=== PATIENT | female | born 1990 | race Caucasian/White ===

== ENCOUNTER 2022-01-22 18:01 | Emergency (ER) | payer MEDICAID, SELFPAY ==
[2022-01-22 18:04] VITALS: BP 160/85; PULSE 71; RESP 16; TEMP 36.5; O2SAT 100; BMI 37.8
--- NOTE | 2022-01-22 18:41 | CT_ITS ---
STUDY: CT BRAIN WITH AND WITHOUT CONTRAST REASON FOR EXAM: Female, 31 years old. headache, left sided weakness RADIATION DOSAGE (If Supplied By Facility): CTDIvol = ( 44.99 ) mGy, DLP = ( 1513.48 ) mGycm TECHNIQUE: Transaxial CT imaging of the brain was performed pre and post contrast administration. The examination was performed with intravenous administration of IV 50mL Isovue-370. Individualized dose optimization techniques were used for this CT. COMPARISON: None. FINDINGS: Normal soft tissue structures. Normal calvarium. Normal size ventricles and extra-axial spaces for the patient''s age. Normal white matter tracts of the cerebral hemispheres. Normal basal ganglia and thalami. Normal brainstem. Normal cerebellum. No evidence of abnormal contrast enhancement. There is no intracranial hemorrhage. There are no findings of an acute ischemic infarction. Moderate opacification of right mastoid air cells. Left mastoid air cells and paranasal sinuses clear. CT/Brain/Head W/WO Contrast IMPRESSION: Brain normal pre and postcontrast. Moderate opacification of right mastoid air cells consistent with mastoiditis. Electronically Signed: Rashard Doll MD, YUSEF at 20:25 EDT ,
--- NOTE | 2022-01-22 18:45 | EX.ED.DYSGE1 ---
HPI History of Present Illness Chief Complaint: Headache Informant: patient and mental health staff Onset/Context/Timing Onset: Today Quality: lightheadedness, malaise Location: generalized Current Severity: Mild Maximum Severity: Severe Worsened by: nothing Relieved by: nothing in particular Associated Symptoms Associated Symptoms: shaky, headache, mild nausea Narrative Narrative: Patient initially states that she has a headache but it is only 2/10 and she has been having headaches for a long time. There is a staff member from a residential facility where she is staying right now for depression with her, who states that the reason EMS was called today was because she had what felt like a diabetic episode, with the patient saying that she felt like her sugar was off, unknown if it was low or high until EMS got there and checked it and it was 174. She has not been drinking a lot of fluid today, she has been taking her metformin and not eating a lot today but she has eaten. She is feeling better now but still has a headache although it is mild. It is left-sided, sharp, temporal. She states this is the same headache that she always gets when she gets one. However in the last month or so, she has been having numbness and weakness in her left leg and sometimes her left arm although right now the left arm is not affected. She has never brought this to medical attention before now. She has had headaches chronically for years but never had the left-sided neurologic symptoms until the past month. Also for the past week she states her right ear feels like it has fluid behind it and has been muffled without significant pain although she did have a mild earache in the past its not hurting now. [facility] Medical History Anxiety delivery delivered Depression Hyperlipidemia Type 2 diabetes mellitus Home Medications amoxicillin-pot clavulanate 875 mg PO Q12H #20 tablet 01/22/22 [Rx Last Taken Unknown] escitalopram oxalate 10 mg PO DAILY 01/22/22 [History Last Taken Unknown] hydroxyzine HCl 25 mg PO BID PRN 01/22/22 [History Last Taken Unknown] metformin 500 mg PO DAILY 01/22/22 [History Last Taken Unknown] metoclopramide HCl 10 mg PO Q6H PRN #14 tab 01/22/22 [Rx Last Taken Unknown] mirtazapine [Remeron] 30 mg PO DAILY 01/22/22 [History Last Taken Unknown] Allergy/AdvReac Type Severity Reaction Status Date / Time cephalexin [From Keflex] Allergy Nausea/Vom/ Verified 01/22/22 18:08 Diarrhea Social History Smoking Status: Former smoker ROS ROS ED Constitutional Constitutional ED: Denies chills or fever(s) Eyes Eyes: Denies change in vision or diplopia ENT ENT ED: Reports nasal congestion and other Details: sneezing off and on ; Denies ear pain, rhinorrhea or sore throat Cardiovascular Cardiovascular: Reports racing heartbeat; Denies chest pain Respiratory/Chest Respiratory/Chest: Denies cough or dyspnea Gastrointestinal Gastrointestinal: Denies abdominal pain, diarrhea, nausea or vomiting Genitourinary Genitourinary ED: Denies dysuria or hematuria Musculoskeletal Musculoskeletal: Denies back pain or neck pain Integumentary Denies abscess or rash Neurologic Neurologic: Reports as per HPI, headache(s), paresthesias and weakness; Denies seizures Psychiatric Psychiatric: Denies anxiety or suicidal thoughts EXAM Physical Exam Const Vital Signs: 01/22/22 18:04 Temperature 97.7 F L Temperature Source Temporal Pulse Rate 71 Respiratory Rate 16 Blood Pressure 160/85 H Blood Pressure Mean 110 Pulse Ox 100 Oxygen Delivery Method Room Air Positive well nourished, well developed and obese General Appearance ED: well developed and NAD Nutritional Appearance: obese HEENT Reports moist mucous membranes HEENT Narrative: Right TM with effusion, not erythematous. No discharge or swelling of the EAC. No pain with manipulation of the pinna or the tragus. Alopecia. normocephalic and atraumatic Eyes PERRL and EOMs intact bilaterally Neck full ROM and supple Resp normal respiratory effort and clear to auscultation bilaterally Effort and Inspection: able to speak in complete sentences Cardio regular rate, regular rhythm and no murmurs Rate: Negative for tachycardic GI non-tender and non-distended Auscultation: normoactive bowel sounds Palpation: soft Back/Spine no CVA tenderness General Back: other FROM Extremity normal to inspection General Extremety ED: Negative for edema, pulses abnormal or tenderness General Extremity: Negative for edema or pulses abnormal Neuro oriented x3 and CN's II-XII intact bilaterally Neuro Narrative: Subjective decrease sensation left lower extremity, and weakness with drift in the left lower extremity. Normal motor and sensory exam elsewhere. Normal speech, no facial droop, no visual field cut/deficit. NIHSS 2 based on these findings. Sensorium / Orientation: awake and alert Skin no rashes or lesions noted and no wounds MDM MDM MDM Narrative Medical decision making narrative: Patient is feeling better after IV fluids and Reglan. I did a CT with and without contrast, given the possibility of an infarct and the possibility of a mass, thought that would be more comprehensive. It was normal except it did show signs of right mastoiditis. She does not have swelling, erythema, tenderness of the mastoid process right now, but her ear looks like there is either an effusion, bullous myringitis, or both. Not very erythematous but given this I will put her on Augmentin which she states she has tolerated in the past, in addition to a prescription for Reglan to use as needed. She states her left lower extremity is less numb but still off she states this has been the case for a while now, advised close outpatient follow-up. Lab Data Attestation: I reviewed the patient's lab results. Labs: Laboratory Results - last 24 hr 01/22/22 01/22/22 18:40 18:40 WBC 7.1 RBC 5.28 Hgb 14.9 Hct 44.7 MCV 84.7 MCH 28.2 MCHC 33.3 RDW Std Deviation 42.5 RDW Coeff of Aline 13.8 Plt Count 272 MPV 10.2 Immature Gran % (Auto) 0.100 Neut % (Auto) 63.0 Lymph % (Auto) 33.7 [place] % (Auto) 1.8 Eos % (Auto) 0.8 Baso % (Auto) 0.6 Absolute Neuts (auto) 4.5 Absolute Lymphs (auto) 2.38 Nucleated RBC % 0 Sodium 140 Potassium 3.7 Chloride 107 Carbon Dioxide 24.0 Anion Gap 9 BUN 9 Creatinine 0.93 Estim Creat Clear Calc 75.69 Est GFR (MDRD) Af Amer 90 Est GFR (MDRD) Non-Af 74 BUN/Creatinine Ratio 9.6 L Glucose 187 H Calcium 9.2 Radiography Diagnostic Testing: Clinical Impression(s) from Imaging Studies Brain CT 01/22/22 18:41 IMPRESSION: Brain normal pre and postcontrast. Moderate opacification of right mastoid air cells consistent with mastoiditis. Electronically Signed: Rashard Doll MD, YUSEF at 20:25 EDT , Discharge Plan Triage Chief Complaint: Headache ED Provider: Ellis Hernandez Dx/Rx/DC Orders Clinical Impression: Acute mastoiditis of right side, Intermittent headache, Paresthesia of left upper and lower extremity, Lightheadedness Instructions: Common Middle Ear Problems, ED Paraesthesias Prescriptions: New metoclopramide HCl [metoclopramide HCl] 10 MG tablet 10 mg PO Q6H PRN (Reason: nausea or migraine) Qty: 14 RF: 0 amoxicillin-pot clavulanate [amoxicillin-pot clavulanate] 875 MG tablet 875 mg PO Q12H Qty: 20 RF: 0 No Action metformin 500 mg Tablet 500 mg PO DAILY RF: 0 mirtazapine [Remeron] 30 mg Tablet 30 mg PO DAILY RF: 0 hydroxyzine HCl 25 mg Tablet 25 mg PO BID PRN (Reason: Anxiety) RF: 0 escitalopram oxalate 10 mg Tablet 10 mg PO DAILY RF: 0 Referrals: CARLOT[facility] JUARES [Other] - 3-5 Days if not improving Nitin Valenzuela MD [STAFF PHYSICIAN] - (Consider making an appointment with neurology because of your headaches and left-sided weakness/numbness) Disposition Disposition: Home, Self Care
[2022-01-22] MEDS: 0.9% Normal Saline 1,000 ML 999 ML IV (18:51)
[2022-01-22] MEDS: Metoclopramide 10 MG/2 ML Vial 5 MG IV (18:51)
[2022-01-22 19:00] LABS: Absolute Lymphocyte Count 2.38 X10^3/uL (0.83-4.51); Absolute Neutrophil Count 4.5 X10^3/uL (2.0-7.7); Basophil# 0.04 X10^3/uL; Basophil% 0.6 % (0-1); Eosinophil# 0.06 X10^3/uL; Eosinophils% 0.8 % (0-5); Hematocrit 44.7 % (37-47); Hemoglobin 14.9 g/dL (12.0-15.0); Lymphocyte # 2.38 X10^3/ul (0.83-4.51); Lymphocyte % 33.7 % (19-41); Mean Corp Hgb Conc 33.3 g/dL (32-36); Mean Corpuscular Hgb 28.2 pg (27.0-32.0); Mean Corpuscular Volume 84.7 fL (81-99); Mean Platelet Vol. 10.2 fl (6.2-12.0); Monocyte# 0.13 X10^3/uL; Monocyte% 1.8 % (0-10); NRBC Flagged by Analyzer 0 % (0-5); Neutrophil # 4.45 X10^3/uL (2.7-7.7); Platelet Count 272 K/mm3 (150-450); RBC Distribution Width CV 13.8 % (11.6-14.6); RBC Distribution Width SD 42.5 fl (35.1-43.9); Red Blood Count 5.28 M/mm3 (4.2-5.4); White Blood Count 7.1 K/mm3 (4.4-11.0)
[2022-01-22 19:13] LABS: Anion Gap 9 (5-15); BUN 9 mg/dL (7-18); BUN/Creat Ratio 9.6 RATIO (10-20); Calcium,Total 9.2 mg/dL (8.5-10.1); Chloride 107 mmol/L (98-107); Creatinine, Serum 0.93 mg/dL (0.55-1.02); EST Glomerular Filtration Rate 74 mL/min (>60); Est Glom Filt Rate - Afr Amer 90 mL/min (>60); Estimated Creatinine Clearance 75.69 ml/min; Glucose 187 mg/dL (74-106); Potassium 3.7 mmol/L (3.5-5.1); Sodium Level 140 mmol/L (136-145)
[2022-01-22] MEDS: Amox/Clavulanate 875 MG Tablet PO (21:55)
== END 2022-01-22 22:00 | disposition home or self-care (01) ==
PROVIDERS: Emergency Provider Emergency Medicine; Visit Provider Emergency Medicine
DX: H70.001 Acute mastoiditis without complications, right ear (principal); E11.9 Type 2 diabetes mellitus without complications; R51.9 Headache, unspecified; F32.A Depression, unspecified; E78.5 Hyperlipidemia, unspecified; E66.9 Obesity, unspecified; R20.2 Paresthesia of skin; R42 Dizziness and giddiness; Z68.37 Body mass index [BMI] 37.0-37.9, adult; Z79.84 Long term (current) use of oral hypoglycemic drugs; Z79.899 Other long term (current) drug therapy; Z87.891 Personal history of nicotine dependence
CPT/HCPCS: 70470; 80048; 85025; 96361; 96374; 99283; J7030; Q9967